=== PATIENT | male | born 1995 | race Caucasian/White ===

== ENCOUNTER 2024-04-08 11:45 | Emergency (ER) | payer SELFPAY ==
[2024-04-08] MEDS: Lidocaine 1% 30 ML SDV INJECT ONE (12:30)
[2024-04-08] MEDS: Diphtheria,Pertussis(Acell),Tetanus Vaccine 0.5 ML Syringe IM ONE (12:41)
== END 2024-04-08 12:45 | disposition home or self-care (01) ==
LOC: VM.ED 11:45
DX: S61.217A Laceration without foreign body of left little finger without damage to nail, initial encounter (principal); Z23 Encounter for immunization; W27.8XXA Contact with other nonpowered hand tool, initial encounter
CPT/HCPCS: 12001; 90471; 90715; 99283; 99283-25; J3490